=== PATIENT | female | born 1935 | race Caucasian/White ===

== ENCOUNTER 2019-10-15 08:38 | Outpatient (CLI) | payer MEDICARE, OTHER, SELFPAY ==
[2019-10-15 09:40] LABS: Blood Urea Nitrogen 23 mg/dL (7-17); Calcium 9.3 mg/dL (8.4-10.2); Carbon Dioxide 26 mmol/L (22-30); Chloride 103 mmol/L (98-107); Estimated Glomerular Filt Rate 39; Glucose 95 mg/dL (65-105); Potassium 4.3 mmol/L (3.4-5.0); Sodium 142 mmol/L (137-145)
== END 2019-10-15 08:39 | disposition home or self-care (01) ==
PROVIDERS: PCP Family Medicine; Visit Provider Physician Assistant Medical
DX: N18.3 Chronic kidney disease, stage 3 (moderate) (principal)
CPT/HCPCS: 36415; 80048

== ENCOUNTER 2020-06-09 11:33 | Outpatient (CLI) | payer MEDICARE, SELFPAY ==
--- NOTE | ~2020-06-09 | XR_ITS ---
EXAMINATION: XR lumbar spine min 4V DATE: 06/09/2020 12:13 INDICATION: Spinal stenosis TECHNIQUE: Anteroposterior, lateral, and bilateral oblique views of the lumbar spine, and cone-down l ateral view of the lumbosacral junction were obtained. COMPARISON: 01/17/2017 FINDINGS: Lumbar levoscoliosis is unchanged. There are 3 mm of stable anterolisthesis of L3 on L4. Th ere is chronic severe loss of intervertebral disc space height at L3-4. Moderate loss of intervertebr al disc space height at L1-2 and L2-3 is unchanged. The vertebral body heights are maintained. There is no fracture. There is severe facet osteoarthritis throughout the lumbar spine without significant change. Calcified atherosclerosis is noted. IMPRESSION: 1. Severe lumbar spondylosis without acute findings or significant interval change. Reviewed, dictated and finalized at location A. IMPRESSION: 1. Severe lumbar spondylosis without acute findings or significant interval mima nge.
--- NOTE | ~2020-06-09 | XR_ITS ---
EXAMINATION: XR sacrum coccyx min 2V DATE: 06/09/2020 12:13 INDICATION: Lumbar spinal stenosis with neurogenic claudication TECHNIQUE: Frontal, angled frontal and lateral views of the sacrum and coccyx were obtained. COMPARISON: None. FINDINGS: Mild lumbar levocurvature. Alignment is otherwise normal. No fracture. Mild bilateral sacroiliac oste oarthritis. Severe lumbar spondylosis. Postoperative changes with surgical clips projecting over the right innominate bone and with additional large metallic clips project over the lower abdomen. IMPRESSION: 1. Mild bilateral sacroiliac osteoarthritis. Sacrum and coccyx are otherwise unremarkable. 2. Mild lumbar levocurvature with severe spondylosis. Reviewed, dictated and finalized at location B. IMPRESSION: 1. Mild bilateral sacroiliac osteoarthritis. Sacrum and coccyx are otherwise un remarkable. 2. Mild lumbar levocurvature with severe spondylosis.
== END 2020-06-09 11:34 | disposition home or self-care (01) ==
PROVIDERS: PCP Family Medicine; Visit Provider Family Medicine
DX: M48.062 Spinal stenosis, lumbar region with neurogenic claudication (principal); M46.1 Sacroiliitis, not elsewhere classified; M47.816 Spondylosis without myelopathy or radiculopathy, lumbar region
CPT/HCPCS: 72110; 72220

== ENCOUNTER 2020-08-30 19:06 | Inpatient (IN) | payer MEDICARE, OTHER, SELFPAY ==
--- NOTE | ~2020-08-30 | XR_ITS ---
EXAMINATION: XR chest 1V portable INDICATION: Cough TECHNIQUE: Portable AP chest at 1539 hours COMPARISON: 08/30/2020 FINDINGS: The lungs are free of acute opacities. There is no pleural effusion or pneumothorax. The ca rdiomediastinal silhouette is normal. S-shaped curvature of the spine is again noted. A suture anchor is present in the right humeral head. IMPRESSION: 1. No acute cardiopulmonary abnormality. Reviewed, dictated and finalized at location A. EON/PRESIDENT
--- NOTE | ~2020-08-30 | XR_ITS ---
EXAMINATION: XR hip RT min 3V w AP pelvis DATE: 08/30/2020 21:45 INDICATION: Right hip pain post fall TECHNIQUE: Anteroposterior view of the pelvis and anteroposterior, frog leg and cross-table lateral v iews of the right hip were obtained. COMPARISON: 06/09/2020 FINDINGS: Alignment is normal. No fracture. Minimal bilateral hip and sacroiliac osteoarthritis. Moderate lower lumbar spondylosis. Couple surgical clips project cephalad to the right acetabulum. Additional clips project over the lower abdomen. IMPRESSION: 1. No acute osseous abnormality. Reviewed, dictated and finalized at location A. APEUTIC PROGRAM WORKER
--- NOTE | ~2020-08-30 | CT_ITS ---
EXAMINATION: CT cervical spine wo con DATE: 08/30/2020 20:02 INDICATION: Head injury TECHNIQUE: Computed tomography (CT) of the cervical spine was performed without intravenous contrast. The dose-length product (DLP) was 296.74 mGy-cm. Automated exposure control and iterative reconstruc tion technique were employed. COMPARISON: 10/23/2018 FINDINGS: There is no fracture. Severe chronic loss of intervertebral disc space height at C5-6 is un changed. There is moderate to severe facet osteoarthritis in the mid cervical spine on the left. Ana re bilateral uncovertebral joint osteoarthritis is present at C5-6. The odontoid is intact. There is fibrous union of the posterior C1 ring. IMPRESSION: 1. Severe cervical spondylosis without acute findings or significant interval change. Reviewed, dictated and finalized at location A. SKILLS INSTRUCTOR IMPRESSION: 1. Severe cervical spondylosis without acute findings or significant interval zenaida holguin
--- NOTE | ~2020-08-30 | CT_ITS ---
EXAMINATION: CT brain wo con INDICATION: Head injury COMPARISON: 10/23/2018 TECHNIQUE: Standard unenhanced head CT. The dose-length product (DLP) was 605.33 mGy-cm. The mA was a djusted according to patient size. Iterative reconstruction technique was employed. FINDINGS: There is left periorbital soft tissue swelling and a small laceration. There is no acute in traparenchymal hemorrhage. No evidence of mass lesion. No evidence of acute infarction. There is mild periventricular and subcortical hypodensity probably related to small vessel ischemic disease. There is mild prominence of the sulci and ventricles related to cerebral atrophy. Intracranial calcified c erebral atherosclerosis is noted. There are no extra-axial collections. There is no mass effect or mi dline shift. Changes in the globes are likely from ocular lens surgery. The visualized sinuses and m astoid air cells are well aerated. IMPRESSION: 1. No acute intracranial abnormality. 2. Age related findings. Reviewed, dictated and finalized at location A. MINER BLASTING
--- NOTE | ~2020-08-30 | XR_ITS ---
EXAMINATION: XR chest 1V INDICATION: Transient alteration of awareness, history of COPD TECHNIQUE: AP view of the chest is obtained. COMPARISON: 10/23/2018 FINDINGS: The lungs are free of acute opacities. There is no pleural effusion or pneumothorax. The ca rdiomediastinal silhouette is normal. A suture anchor is noted in the right humeral head. There is S- shaped curvature of the spine. Surgical clips in the right upper quadrant are likely from prior tahir cystectomy. There also appear to be changes of mesh ventral hernia repair in the upper abdomen. IMPRESSION: 1. No acute cardiopulmonary abnormality. Reviewed, dictated and finalized at location A. PROFIT JOB TITLES
[2020-08-30 19:06] VITALS: BP 147/75; PULSE 89; RESP 15; TEMP 36.7; O2SAT 95
--- NOTE | 2020-08-30 19:26 | ECG_ITS ---
Measurements Intervals [place] Rate: 82 P: 38 NH: 138 QRS: 61 QRSD: 134 T: 39 QT: 396 QTc: 464 Interpretive Statements SINUS RHYTHM WITH MARKED SINUS ARRHYTHMIA RIGHT BUNDLE BRANCH BLOCK ABNORMAL ECG Electronically Signed On 08-31-2020 7:58:52 LOG YARD DERRICK OPERATOR by Sb Atkinson D.O.
--- NOTE | 2020-08-30 19:35 | PC.NURSE ---
pt. to xray
[2020-08-30] MEDS: TETANUS,DIPHTHERIA,AC PERTUSSIS ADULT (0.5 ML) BOOSTRIX IM (20:18)
[2020-08-30] MEDS: SODIUM CHLORIDE 0.9% IV 1,000 ML 999 ML IV CONT (20:18)
[2020-08-30 20:34] LABS: Glucose Point of Care 321 (65-105)
[2020-08-30 20:39] LABS: Basophils Percent Auto 0.3 % (0.2-1.2); Eosinophils Percent Auto 0.4 % (0-4.4); Hemoglobin 10.7 g/dL (12.0-15.0); Immature Granulocyte Absolute 0.05 K/mm3 (0.00-0.031); Immature Granulocyte Percent A 0.5 % (0-0.5); Lymphocytes Absolute Auto 2.25 K/mm3 (0.9-3.2); Lymphocytes Percent Auto 22.5 % (18.3-44.2); Mean Corpuscular HGB Conc 31.5 g/dl (32-36); Mean Corpuscular Hemoglobin 30.7 pg (26-34); Mean Corpuscular Volume 97.7 fl (80-100); Mean Platelet Volume 10.5 fl (7.4-10.4); Monocytes Absolute Auto 1.1 K/mm3 (0.1-0.6); Monocytes Percent Auto 10.9 % (2.6-8.5); Neutrophils Absolute Auto 6.5 K/mm3 (1.3-6.7); Neutrophils Percent Auto 65.4 % (45.5-73.1); Platelet Count Result 203 k/mm3 (150-375); Red Blood Count 3.48 M/mm3 (4.2-5.4); Red Cell Distribution Width 13.2 % (11.5-14.5)
[2020-08-30 20:44] LABS: Add Urine Microscopic? YES; Appearance Urine Cloudy (Clear); Bacteria Urine 1+ /hpf; Bilirubin Urine Negative (Negative); Blood Urine Negative (Negative); Color Urine Yellow (Yellow); Glucose Urine UA 3+ mg/dL (Negative); Ketones Urine Negative (Negative); Leukocyte Esterase Ur 3+ LEU/UL (Negative); Mucus Urine Rare /lpf; Nitrate Urine Negative (Negative); Protein Urine Negative (Negative); Specific Grav Ur 1.013 (1.001-1.035); Squamous Epithelial Cell Urine Rare /hpf (Few); Urobilinogen Urine Negative mg/dL (<2.0); WBC Urine >75 /hpf
[2020-08-30 21:02] LABS: Troponin I 0.016 ng/mL (0.000-0.034)
--- NOTE | 2020-08-30 21:22 | ED.GENADULT ---
HPI - General Adult General Chief complaint: Fall Stated complaint: fall, loc Time Seen by Provider: 08/30/20 19:30 History of Present Illness HPI narrative: Patient is a 84-year-old female who presents the emergency department with chief complaint of fall. Patient states that she was in her apartment at [facility] and the next thing she knows she is on the ground. Patient reports that she is unsure whether she passed out. The family reports that she has been more confused lately and today after she arrived in the emergency department was talking to herself. Patient denies nausea vomiting denies neck pain reports she is unsure of her last tetanus shot. She reports there is a laceration to her left eyebrow Related Data Home Medications Medication Instructions Recorded Confirmed docusate sodium 100 mg tablet 100 mg PO DAILY 07/24/19 06/09/20 lifitegrast 5 % eye drops in a 1 drop EACH EYE BID 07/25/19 06/09/20 dropperette acetaminophen 325 mg tablet 325 mg PO QID PRN tablet 08/10/19 06/09/20 furosemide 20 mg tablet 10 mg PO QAM tablet 12/17/19 06/09/20 duloxetine 60 mg capsule,delayed 60 mg PO DAILY 08/11/20 release Allergies Allergy/AdvReac Type Severity Reaction Status Date / Time No Known Allergies Allergy Verified 08/11/20 08:02 Review of Systems Review of Systems: Narrative: A 10 system review of systems was completed on the patient and is negative except for what is stated in the HPI. Nursing and ancillary documentation was reviewed. [facility]LY [facility] Past Medical History Medical History BMI 31.0-31.9,adult BMI 32.0-32.9,adult CKD (chronic kidney disease) stage 3, GFR 30-59 ml/min COPD (chronic obstructive pulmonary disease) Depression Dyslipidemia Iron deficiency anemia secondary to blood loss (chronic) Loss of balance Mixed hyperlipidemia CLAIR (obstructive sleep apnea) CLAIR (obstructive sleep apnea) Primary insomnia Psychosis Recurrent urinary tract infection Spinal stenosis of lumbar region with neurogenic claudication Type 2 diabetes mellitus without complications Vitamin D deficiency, unspecified Family History Family History Father Family history of coronary artery disease Cerebrovascular accident Family history of congestive heart failure Social History Social History Smoking status: Never smoker Alcohol intake: never Exam Narrative: Exam Narrative: GENERAL: Well-appearing, well-nourished, and in no acute distress. HEAD: Normocephalic, there is a 3 cm laceration of the left eyebrow there is a contusion to the chin. EYES: PERRLA and EOMI. ENT: Nares clear, no rhinorrhea or epistaxis. Mucous membranes moist. NECK: Supple. CHEST: Clear to auscultation. No respiratory distress. HEART: Regular rate and rhythm. No murmur heard. Normal peripheral pulses. ABDOMEN: Soft, nontender, nondistended, normal active bowel sounds. EXTREMITIES: Normal range of motion. No edema. SKIN: Warm, dry, no rash. NEURO: No focal deficits. Alert and oriented x3. PSYCH: Normal mood and affect. Course Vital Signs Vital signs: Vital Signs Temperature 36.7 C 08/30/20 19:06 Pulse Rate 89 08/30/20 19:06 Respiratory Rate 15 08/30/20 19:06 Blood Pressure 147/75 H 08/30/20 19:06 Pulse Oximetry 95 08/30/20 19:06 Temperature 36.7 C 08/30/20 19:06 Pulse Rate 89 08/30/20 19:06 Respiratory Rate 15 08/30/20 19:06 Blood Pressure 147/75 H 08/30/20 19:06 Pulse Oximetry 95 08/30/20 19:06 Procedures Laceration Laceration 1: Date: 08/30/20 Time: 21:22 Site: face Size (cm): 3 Description: linear Depth: simple, single layer Local Anesthetic: lidocaine 1% Amount of anesthesia used (mL): 3 Pre-repair: wound explored ====== Skin Level ==
[2020-08-30 22:18] VITALS: BP 151/60; PULSE 86; RESP 15; O2SAT 96
[2020-08-30 22:44] VITALS: BP 130/88; PULSE 86; RESP 17; O2SAT 95
--- NOTE | 2020-08-30 23:01 | ADMGEN ---
This patient, Kath Hernandez, was admitted to Medical Room 346-01. Patient/family oriented to hospital policies and general routines including ID bracelet, bed and alarms, visiting hours, pain management, procedures, bathroom and other care routines, personal items, smoking policy, room service/diet, and visiting hours. Information on how to activate the Rapid Response Team has been discussed. Patient/Family are encouraged to report perceived risks to care and to ask questions if they do not understand what they are told or what they should do.
[2020-08-30 23:06] VITALS: BP 122/87; PULSE 84; RESP 18; TEMP 36.4; O2SAT 98
[2020-08-30 23:08] VITALS: BMI 29.5
[2020-08-30] MEDS: SODIUM CHLORIDE 0.9% IV 1,000 ML 125 ML IV CONT (23:11)
[2020-08-30 23:15] LABS: Glucose Point of Care 265 (65-105)
[2020-08-31] VITALS (9 sets, daily range): BP systolic 121–136; BP diastolic 48–88; PULSE 75–112; RESP 17–18; TEMP 36.3–36.8; O2SAT 94–97
--- NOTE | 2020-08-31 01:03 | PM.IMHP ---
H&P: HPI History of Present Illness Date/Time: 08/31/20 01:03 Chief Complaint: Fall at home and weakness++ Narrative: This is a pleasantly demented 84 year old Diabetic female who is known to have COPD, CKD stage III, and recurent UTIs who presented to the hospital today from assisted living secondary to suffering a fall. The patient is severely demented and cannot recall even her own age, where she lives, and is not able to tell me any details of anything that happened to her today. She seems to only be oriented to herself. She has no insight into her own chronic medical illnesses. Currently she is only complaining of left eye discomfort. She suffered a left frontal laceration which was sutured in the ER. Routine labs demonstrated a grossly abnormal urinalysis. CT brain was unremarkable for any acute intracranial pathology today. She was treated with IV fluids, IV antibiotics and we were asked to admit her to the hospital for further care. She has no other complaints. Her daughter has already been making plans to place the patient in SNF. Review of Systems Review of Systems: All systems reviewed & are unremarkable except as noted in HPI and below PMFSH Past Medical History Medical History BMI 31.0-31.9,adult BMI 32.0-32.9,adult CKD (chronic kidney disease) stage 3, GFR 30-59 ml/min COPD (chronic obstructive pulmonary disease) Depression Dyslipidemia Iron deficiency anemia secondary to blood loss (chronic) Loss of balance Mixed hyperlipidemia CLAIR (obstructive sleep apnea) CLAIR (obstructive sleep apnea) Primary insomnia Psychosis Recurrent urinary tract infection Spinal stenosis of lumbar region with neurogenic claudication Type 2 diabetes mellitus without complications Vitamin D deficiency, unspecified Family History Family History Father Family history of coronary artery disease Cerebrovascular accident Family history of congestive heart failure Social History Social History Smoking status: Never smoker Alcohol intake: never Substance use: never Gender identity (if verbalized by the patient): Female Sexual Orientation (if Verbalized by the Patient): Straight or Heterosexual Spiritual care concerns: No Meds Home Medications and Allergies Home Medications Medication Instructions Recorded Confirmed Type docusate sodium 100 mg tablet 100 mg PO DAILY 07/24/19 08/31/20 History lifitegrast 5 % eye drops in a 1 drop EACH EYE BID 07/25/19 08/31/20 History dropperette acetaminophen 325 mg tablet 650 mg PO QAM AND QPM tablet 08/10/19 08/31/20 History simvastatin 20 mg tablet 20 mg PO DAILY #90 tablet 10/31/19 08/31/20 Rx raloxifene 60 mg tablet 60 mg PO DAILY #90 tablet 11/01/19 08/31/20 Rx furosemide 20 mg tablet 20 mg PO QAM tablet 12/17/19 08/31/20 History duloxetine 60 mg capsule,delayed 30 mg PO DAILY 08/11/20 08/31/20 History release acetaminophen 325 mg PO QNOON 08/31/20 08/31/20 History donepezil 10 mg PO HS 08/31/20 08/31/20 History glimepiride 1 mg PO DAILY 08/31/20 08/31/20 History meclizine 25 mg PO BID 08/31/20 08/31/20 History memantine 10 mg PO BID 08/31/20 08/31/20 History sertraline 100 mg PO DAILY 08/31/20 08/31/20 History tramadol 50 mg PER PKG DIR PRN 08/31/20 08/31/20 History Allergies Allergy/AdvReac Type Severity Reaction Status Date / Time No Known Allergies Allergy Verified 08/31/20 00:05 Vital Signs Vital Signs - 24 hr 08/30/20 19:06 08/30/20 22:18 08/30/20 22:44 Temperature 36.7 C Pulse Rate 89 86 86 Respiratory Rate 15 15 17 Blood Pressure 147/75 H 151/60 H 130/88 Pulse Oximetry 95 96 95 08/30/20 23:06 Temperature 36.4 C Pulse Rate 84 Respiratory Rate 18 Blood Pressure 122/87 Pulse Oximetry 98 Exam Const: General: cooperative, healthy appearing, no acute distress, alert
[2020-08-31 01:16] LABS: Troponin I 0.022 ng/mL (0.000-0.034)
[2020-08-31 04:04] LABS: Basophils Percent Auto 0.2 % (0.2-1.2); Eosinophils Absolute Auto 0.1 K/mm3 (0-0.3); Eosinophils Percent Auto 0.8 % (0-4.4); Hematocrit 27.5 % (37.0-47.0); Hemoglobin 8.6 g/dL (12.0-15.0); Immature Granulocyte Absolute 0.04 K/mm3 (0.00-0.031); Immature Granulocyte Percent A 0.4 % (0-0.5); Lymphocytes Absolute Auto 3.11 K/mm3 (0.9-3.2); Lymphocytes Percent Auto 30.6 % (18.3-44.2); Mean Corpuscular HGB Conc 31.3 g/dl (32-36); Mean Corpuscular Hemoglobin 31.5 pg (26-34); Mean Corpuscular Volume 100.7 fl (80-100); Mean Platelet Volume 10.5 fl (7.4-10.4); Monocytes Percent Auto 10.2 % (2.6-8.5); Neutrophils Absolute Auto 5.9 K/mm3 (1.3-6.7); Neutrophils Percent Auto 57.8 % (45.5-73.1); Platelet Count Result 167 k/mm3 (150-375); Red Blood Count 2.73 M/mm3 (4.2-5.4); Red Cell Distribution Width 13.5 % (11.5-14.5); White Blood Count 10.2 K/mm3 (4.5-10.0)
[2020-08-31 04:23] LABS: Anion Gap 6 mmol/L (8-16); Blood Urea Nitrogen 26 mg/dL (7-17); Calcium 8.3 mg/dL (8.4-10.2); Carbon Dioxide 33 mmol/L (22-30); Chloride 103 mmol/L (98-107); Estimated CRCL calculation 33 ml/min; Estimated Glomerular Filt Rate 53; Glucose 193 mg/dL (65-105); Magnesium 1.7 mg/dL (1.6-2.3); Potassium 3.9 mmol/L (3.4-5.0); Sodium 142 mmol/L (137-145)
[2020-08-31 04:34] LABS: Troponin I 0.024 ng/mL (0.000-0.034)
[2020-08-31 08:12] LABS: Glucose Point of Care 142 (65-105)
[2020-08-31] MEDS: SODIUM CHLORIDE 0.9% IV 1,000 ML 125 ML IV CONT (08:35)
[2020-08-31] MEDS: buPROPion HCL XL (24 HR) 150 MG TABCR 300 MG PO (08:41)
[2020-08-31] MEDS: MEMANTINE 10 MG TABLET PO ×2 (08:41→17:08)
[2020-08-31] MEDS: SIMVASTATIN 20 MG TABLET PO (08:41)
[2020-08-31] MEDS: DONEPEZIL HCL 10 MG TABLET PO (08:41)
[2020-08-31] MEDS: GLIMEPIRIDE 1 MG TABLET PO (08:41)
[2020-08-31] MEDS: DULoxetine HCL 60 MG CAPSULE.DR PO (08:42)
[2020-08-31] MEDS: SERTRALINE HCL 50 MG TABLET 200 MG PO (08:42)
[2020-08-31] MEDS: FUROSEMIDE 20 MG TABLET PO (08:42)
[2020-08-31] MEDS: RALOXIFENE HCL (*CHEMO) 60 MG TABLET PO (08:44)
[2020-08-31] MEDS: DOCUSATE SODIUM 100 MG CAPSULE PO (11:43)
[2020-08-31 12:08] LABS: Glucose Point of Care 150 (65-105)
--- NOTE | 2020-08-31 12:38 | PM.IMPN ---
Progress Note: A&P Assessment and Plan (1) UTI (urinary tract infection): Qualifiers: Hematuria presence: without hematuria Urinary tract infection type: site unspecified Qualified Code(s): N39.0 - Urinary tract infection, site not specified Code(s): N39.0 - Urinary tract infection, site not specified Status: Acute Assessment and Plan: Urinalysis is grossly abnormal for urinary tract infection. She has a hx of frequent UTIs. Urine cultures are pending. Continue empiric ceftriaxone Await urine cultures and adjust antibiotics accordingly (2) Falls: Qualifiers: Encounter type: initial encounter Qualified Code(s): W19.XXXA - Unspecified fall, initial encounter Code(s): W19.XXXA - Unspecified fall, initial encounter Status: Acute Assessment and Plan: Appears to be secondary to her acute urinary tract infection and severe dementia. Continue fall precautions PT/OT have been consulted Care coordination is following for SNF placement (3) Dementia: Qualifiers: Dementia behavioral disturbance: without behavioral disturbance Dementia type: unspecified type Qualified Code(s): F03.90 - Unspecified dementia without behavioral disturbance Code(s): F03.90 - Unspecified dementia without behavioral disturbance Status: Chronic Assessment and Plan: Chronic and progressively worsening over the past 6 months per the patient's daughter. She is alert and oriented to self, place, month, states 2019 for year. Will check vitamin B12 and folate levels. Continue home memantine and donepezil. Continue to monitor Care coordination is following for rehab placement Will ask WHEEL BUFFER to evaluate for witnessed cough after clear liquids (4) Chronic anemia: Code(s): D64.9 - Anemia, unspecified Status: Chronic Assessment and Plan: Likely anemia of chronic disease. Will check vitamin B12, folate, iron levels. MCV slightly elevated. She has no signs of acute blood loss at this time. Check iron, vitamin B12, folate Monitor H&H with CBC daily Transfuse as needed to maintain Hb >7 (5) Depression: Qualifiers: Active/Remission status: currently active Depression Type: major depressive disorder Major depression episode severity: moderate Major depression recurrence: single episode Qualified Code(s): F32.1 - Major depressive disorder, single episode, moderate Code(s): F32.9 - Major depressive disorder, single episode, unspecified Status: Chronic Assessment and Plan: Chronic. Mood is stable and she is very pleasant. Continue prior to admission regimen of bupropion, duloxetine, and sertraline (6) COPD (chronic obstructive pulmonary disease): Qualifiers: COPD type: unspecified COPD Qualified Code(s): J44.9 - Chronic obstructive pulmonary disease, unspecified Code(s): J44.9 - Chronic obstructive pulmonary disease, unspecified Status: Chronic Assessment and Plan: Chronic and not in acute exacerbation. Continue albuterol as needed. (7) Dyslipidemia: Code(s): E78.5 - Hyperlipidemia, unspecified Status: Chronic Assessment and Plan: LFTs normal 11/16/18. Order CMP for tomorrow to check liver function Continue simvastatin (8) Dysphagia: Code(s): R13.10 - Dysphagia, unspecified Status: Acute Assessment and Plan: The RN noted that the patient coughed after thin liquids. WHEEL BUFFER will evaluate tomorrow. In the meantime, I changed diet to mildly thick liquids and minced and moist for today until further recommendations from WHEEL BUFFER are available Subjective Date/time seen: 08/31/20 12:38 Mrs. Hernandez is an 84 y.o. female with PMH significant for dementia, CKD stage III, COPD, depression, hyperlipidemia, and recurrent urinary tract infections who is seen in follow-up for urinary tract infectio
[2020-08-31] MEDS: ACETAMINOPHEN 325 MG TABLET PO (12:44)
--- NOTE | 2020-08-31 16:20 | PC.NURSE ---
Spoke with patient's daughter Mini Mena earlier today to confirm home medications. [id number] the director of patient care handed me a medication list for this patient.. She voiced that the patients daughter brought in this home medications list. Upon looking at the list I saw it had medications on it that the patients daughter voiced that she no longer takes and additional medications that we has not discussed. She voiced there is more and she apoligized and said she had a long morning.
[2020-08-31 16:38] LABS: Glucose Point of Care 202 (65-105)
[2020-08-31] MEDS: INSULIN ASPART (*BKC) 100 UNITS/ML SUB-Q (17:03)
[2020-08-31] MEDS: OLANZapine 10 MG INJ VIAL 5 MG IM (19:51)
[2020-08-31 20:47] LABS: SARS-CoV-2 RNA PCR Negative
[2020-08-31 21:49] LABS: Glucose Point of Care 200 (65-105)
[2020-09-01 04:40] VITALS: BP 142/67; PULSE 104; RESP 18; TEMP 36.5; O2SAT 96
[2020-09-01 06:22] LABS: Basophils Percent Auto 0.1 % (0.2-1.2); Eosinophils Absolute Auto 0.1 K/mm3 (0-0.3); Eosinophils Percent Auto 1.2 % (0-4.4); Hematocrit 29.8 % (37.0-47.0); Hemoglobin 9.5 g/dL (12.0-15.0); Immature Granulocyte Absolute 0.03 K/mm3 (0.00-0.031); Immature Granulocyte Percent A 0.4 % (0-0.5); Lymphocytes Absolute Auto 2.51 K/mm3 (0.9-3.2); Lymphocytes Percent Auto 33.5 % (18.3-44.2); Mean Corpuscular HGB Conc 31.9 g/dl (32-36); Mean Corpuscular Hemoglobin 30.8 pg (26-34); Mean Corpuscular Volume 96.8 fl (80-100); Mean Platelet Volume 10.5 fl (7.4-10.4); Monocytes Absolute Auto 0.8 K/mm3 (0.1-0.6); Monocytes Percent Auto 10.7 % (2.6-8.5); Neutrophils Absolute Auto 4.1 K/mm3 (1.3-6.7); Neutrophils Percent Auto 54.1 % (45.5-73.1); Platelet Count Result 182 k/mm3 (150-375); Red Blood Count 3.08 M/mm3 (4.2-5.4); Red Cell Distribution Width 13.5 % (11.5-14.5); White Blood Count 7.5 K/mm3 (4.5-10.0)
[2020-09-01 06:35] LABS: Alanine Aminotransferase 20 U/L (4-35); Albumin Level 2.9 g/dL (3.5-5.1); Alkaline Phosphatase 75 U/L (38-126); Anion Gap 3 mmol/L (8-16); Aspartate Amino Transferase 31 U/L (14-36); Bilirubin,Total 0.4 mg/dL (0.2-1.3); Blood Urea Nitrogen 21 mg/dL (7-17); Calcium 8.5 mg/dL (8.4-10.2); Carbon Dioxide 34 mmol/L (22-30); Chloride 103 mmol/L (98-107); Estimated CRCL calculation 33 ml/min; Estimated Glomerular Filt Rate 53; Glucose 112 mg/dL (65-105); Magnesium 1.5 mg/dL (1.6-2.3); Potassium 3.4 mmol/L (3.4-5.0); Sodium 140 mmol/L (137-145)
[2020-09-01 07:32] LABS: Glucose Point of Care 120 (65-105)
[2020-09-01] MEDS: SIMVASTATIN 20 MG TABLET PO (08:35)
[2020-09-01] MEDS: ACETAMINOPHEN 325 MG TABLET 650 MG PO ×2 (08:35→21:17)
[2020-09-01] MEDS: buPROPion HCL XL (24 HR) 150 MG TABCR 300 MG PO (08:35)
[2020-09-01] MEDS: RALOXIFENE HCL (*CHEMO) 60 MG TABLET PO (08:35)
[2020-09-01] MEDS: MECLIZINE HCL 25 MG TABLET PO (08:35)
[2020-09-01] MEDS: SERTRALINE HCL 50 MG TABLET 100 MG PO (08:35)
[2020-09-01] MEDS: MEMANTINE 10 MG TABLET PO ×2 (08:35→16:51)
[2020-09-01] MEDS: DOCUSATE SODIUM 100 MG CAPSULE PO (08:35)
[2020-09-01] MEDS: DONEPEZIL HCL 10 MG TABLET PO (08:35)
[2020-09-01] MEDS: DULoxetine HCL 30 MG CAPSULE.DR PO (08:36)
[2020-09-01] MEDS: MAGNESIUM SULF 2 GM/WATER 50ML 2 GM/50 ML BAG IVPB (08:37)
--- NOTE | 2020-09-01 10:36 | ECG_ITS ---
Measurements Intervals [place] Rate: 115 P: 5 NE: 149 QRS: 53 QRSD: 130 T: 25 QT: 362 QTc: 501 Interpretive Statements SINUS TACHYCARDIA RIGHT BUNDLE BRANCH BLOCK ABNORMAL ECG Electronically Signed On 09-01-2020 11:59:47 TAX ASSESSOR by Sb Atkinson D.O.
--- NOTE | 2020-09-01 10:37 | PM.IMPN ---
Progress Note: A&P Assessment and Plan (1) UTI (urinary tract infection): Qualifiers: Hematuria presence: without hematuria Urinary tract infection type: site unspecified Qualified Code(s): N39.0 - Urinary tract infection, site not specified Code(s): N39.0 - Urinary tract infection, site not specified Status: Acute Assessment and Plan: Urinalysis is grossly abnormal for urinary tract infection. She has a hx of frequent UTIs. Preliminary urine culture shows proteus mirabilis. Continue empiric ceftriaxone Await urine cultures and adjust antibiotics accordingly (2) Falls: Qualifiers: Encounter type: initial encounter Qualified Code(s): W19.XXXA - Unspecified fall, initial encounter Code(s): W19.XXXA - Unspecified fall, initial encounter Status: Acute Assessment and Plan: Appears to be secondary to her acute urinary tract infection and severe dementia. Continue fall precautions PT/OT have been consulted Care coordination is following for SNF placement (3) Dementia: Qualifiers: Dementia behavioral disturbance: without behavioral disturbance Dementia type: unspecified type Qualified Code(s): F03.90 - Unspecified dementia without behavioral disturbance Code(s): F03.90 - Unspecified dementia without behavioral disturbance Status: Chronic Assessment and Plan: Chronic and progressively worsening over the past 6 months per the patient's daughter. She is alert and oriented to self, place, month, states 2019 for year. Will check vitamin B12 and folate levels. Continue home memantine and donepezil. Continue to monitor Care coordination is following for rehab placement SENIOR BUSINESS CONSULTANT recommends mildly thick liquids (4) Chronic anemia: Code(s): D64.9 - Anemia, unspecified Status: Chronic Assessment and Plan: Likely anemia of chronic disease. Will check vitamin B12, folate, iron levels. MCV normal today. She has no signs of acute blood loss. Check iron, vitamin B12, folate Monitor H&H with CBC daily Transfuse as needed to maintain Hb >7 (5) Depression: Qualifiers: Active/Remission status: currently active Depression Type: major depressive disorder Major depression episode severity: moderate Major depression recurrence: single episode Qualified Code(s): F32.1 - Major depressive disorder, single episode, moderate Code(s): F32.9 - Major depressive disorder, single episode, unspecified Status: Chronic Assessment and Plan: Chronic. Mood is stable and she is very pleasant. Continue prior to admission regimen of bupropion, duloxetine, and sertraline (6) COPD (chronic obstructive pulmonary disease): Qualifiers: COPD type: unspecified COPD Qualified Code(s): J44.9 - Chronic obstructive pulmonary disease, unspecified Code(s): J44.9 - Chronic obstructive pulmonary disease, unspecified Status: Chronic Assessment and Plan: Chronic and not in acute exacerbation. Continue albuterol as needed. (7) Dyslipidemia: Code(s): E78.5 - Hyperlipidemia, unspecified Status: Chronic Assessment and Plan: LFTs normal on review of labs. Continue simvastatin (8) Dysphagia: Code(s): R13.10 - Dysphagia, unspecified Status: Acute Assessment and Plan: The RN noted that the patient coughed after thin liquids. I changed her diet to mildly thick liquids and minced and moiced which she is doing well on. She has underlying dementia which is likely contributing. SENIOR BUSINESS CONSULTANT evaluated and recommends level 2 fluids and speech therapy 3x per week for 2 weeks (9) Chest pain: Code(s): R07.9 - Chest pain, unspecified Status: Acute Assessment and Plan: The patient reports aching discomfort in the mid chest with pulling herself up in the bed. Pain is only present with movement and
[2020-09-01 11:15] LABS: Glucose Point of Care 356 (65-105)
[2020-09-01 11:17] LABS: Glucose Point of Care 366 (65-105)
[2020-09-01] MEDS: INSULIN ASPART (*BKC) 100 UNITS/ML SUB-Q ×3 (11:18→22:45)
[2020-09-01] MEDS: ACETAMINOPHEN 325 MG TABLET PO (11:18)
[2020-09-01 11:20] LABS: Troponin I 0.015 ng/mL (0.000-0.034)
[2020-09-01 14:00] VITALS: BP 121/54; PULSE 98; RESP 16; TEMP 35.7; O2SAT 95
[2020-09-01 17:06] LABS: Glucose Point of Care 294 (65-105)
[2020-09-01 17:22] LABS: Troponin I 0.018 ng/mL (0.000-0.034)
[2020-09-01 18:50] LABS: SARS-CoV-2 RNA PCR Negative
[2020-09-01 19:58] VITALS: BP 155/65; PULSE 95; RESP 16; TEMP 36.6; O2SAT 98
[2020-09-01] MEDS: ENOXAPARIN 40 MG/0.4 ML SYRINGE SUB-Q (21:17)
[2020-09-01] MEDS: INSULIN GLARGINE (*BKC) 100 UNITS/ML 10 UNITS SUB-Q (21:17)
[2020-09-01 21:28] LABS: Glucose Point of Care 345 (65-105)
[2020-09-01 23:12] LABS: Magnesium 1.6 mg/dL (1.6-2.3)
[2020-09-02 03:12] LABS: Glucose Point of Care 95 (65-105)
[2020-09-02 04:19] VITALS: BP 150/54; PULSE 99; RESP 18; TEMP 36.9; O2SAT 99
[2020-09-02 05:57] LABS: Basophils Percent Auto 0.2 % (0.2-1.2); Eosinophils Absolute Auto 0.1 K/mm3 (0-0.3); Eosinophils Percent Auto 1.1 % (0-4.4); Hematocrit 31.3 % (37.0-47.0); Immature Granulocyte Absolute 0.02 K/mm3 (0.00-0.031); Immature Granulocyte Percent A 0.2 % (0-0.5); Lymphocytes Absolute Auto 2.41 K/mm3 (0.9-3.2); Lymphocytes Percent Auto 26.4 % (18.3-44.2); Mean Corpuscular HGB Conc 31.9 g/dl (32-36); Mean Corpuscular Hemoglobin 31.6 pg (26-34); Mean Corpuscular Volume 99.1 fl (80-100); Mean Platelet Volume 10.6 fl (7.4-10.4); Monocytes Percent Auto 10.7 % (2.6-8.5); Neutrophils Absolute Auto 5.6 K/mm3 (1.3-6.7); Neutrophils Percent Auto 61.4 % (45.5-73.1); Platelet Count Result 177 k/mm3 (150-375); Red Blood Count 3.16 M/mm3 (4.2-5.4); Red Cell Distribution Width 13.7 % (11.5-14.5); White Blood Count 9.1 K/mm3 (4.5-10.0)
[2020-09-02 06:19] LABS: Anion Gap 6 mmol/L (8-16); Blood Urea Nitrogen 20 mg/dL (7-17); Calcium 8.9 mg/dL (8.4-10.2); Carbon Dioxide 33 mmol/L (22-30); Chloride 102 mmol/L (98-107); Estimated CRCL calculation 33 ml/min; Estimated Glomerular Filt Rate 53; Glucose 141 mg/dL (65-105); Magnesium 1.6 mg/dL (1.6-2.3); Potassium 3.8 mmol/L (3.4-5.0); Sodium 141 mmol/L (137-145)
[2020-09-02 07:44] LABS: Folic Acid > 20.0 ng/mL (2.76->20)
[2020-09-02 07:52] LABS: Iron 42 ug/dL (37-170)
[2020-09-02 08:03] LABS: Percent Iron Saturation 14 % (20-50)
[2020-09-02] MEDS: buPROPion HCL XL (24 HR) 150 MG TABCR 300 MG PO (08:17)
[2020-09-02] MEDS: MECLIZINE HCL 25 MG TABLET PO (08:17)
[2020-09-02] MEDS: RALOXIFENE HCL (*CHEMO) 60 MG TABLET PO (08:18)
[2020-09-02] MEDS: DOCUSATE SODIUM 100 MG CAPSULE PO (08:18)
[2020-09-02] MEDS: SIMVASTATIN 20 MG TABLET PO (08:18)
[2020-09-02] MEDS: SERTRALINE HCL 50 MG TABLET 100 MG PO (08:18)
[2020-09-02] MEDS: DONEPEZIL HCL 10 MG TABLET PO (08:18)
[2020-09-02] MEDS: DULoxetine HCL 30 MG CAPSULE.DR PO (08:18)
[2020-09-02] MEDS: ACETAMINOPHEN 325 MG TABLET 650 MG PO (08:18)
[2020-09-02] MEDS: MEMANTINE 10 MG TABLET PO ×2 (08:18→17:20)
[2020-09-02 10:02] LABS: Hemoglobin A1C 8.6 % (<5.7)
[2020-09-02] MEDS: INSULIN ASPART (*BKC) 100 UNITS/ML SUB-Q ×2 (11:32→17:18)
[2020-09-02] MEDS: ACETAMINOPHEN 325 MG TABLET PO (11:33)
[2020-09-02 11:40] LABS: Glucose Point of Care 307 (65-105)
[2020-09-02 14:00] VITALS: BP 130/69; PULSE 107; RESP 16; TEMP 36; O2SAT 98
[2020-09-02 14:22] VITALS: O2SAT 95
--- NOTE | 2020-09-02 16:33 | PM.DS ---
DS: Admitting Diagnosis Admitting Diagnosis Admitting Diagnosis: urinary tract infection DS: Discharge Diagnosis Discharge Diagnosis (1) UTI (urinary tract infection): Qualifiers: Urinary tract infection type: site unspecified Hematuria presence: without hematuria Qualified Code(s): N39.0 - Urinary tract infection, site not specified Code(s): N39.0 - Urinary tract infection, site not specified Status: Acute Assessment and Plan: Urinalysis grossly abnormal upon presentation consistent with urinary tract infection. She does have a history of frequent UTIs. Urine culture grew Proteus mirabilis. She was started on IV ceftriaxone and will continue taking p.o. cefdinir to complete a total of 7 days of antibiotic therapy. Mild leukocytosis resolved and she remained afebrile. she did not endorse any urinary symptoms. (2) Falls: Qualifiers: Encounter type: initial encounter Qualified Code(s): W19.XXXA - Unspecified fall, initial encounter Code(s): W19.XXXA - Unspecified fall, initial encounter Status: Acute Assessment and Plan: Probably secondary to physical deconditioning, dementia, and possibly secondary to acute urinary tract infection. she did have some scattered ecchymoses and a small are linear laceration above the left eyebrow. She was evaluated by PT/OT and will continue therapy at SNF. Fall precautions discussed. (3) Dementia: Qualifiers: Dementia type: unspecified type Dementia behavioral disturbance: without behavioral disturbance Qualified Code(s): F03.90 - Unspecified dementia without behavioral disturbance Code(s): F03.90 - Unspecified dementia without behavioral disturbance Status: Chronic Assessment and Plan: She remained pleasantly confused, consistent with her baseline. Family reports progressive worsening over the past 6 months. Alert to self only on my exam. She was evaluated by speech therapy who recommended mildly thick liquids. Continue home memantine and donepezil. (4) Type 2 diabetes mellitus without complications: Qualifiers: Diabetes mellitus manager terminal insulin use: without longterm use Qualified Code(s): E11.9 - Type 2 diabetes mellitus without complications Code(s): E11.9 - Type 2 diabetes mellitus without complications Status: Acute Assessment and Plan: Blood sugars were elevated above target. She was started on Lantus during her stay and glimepiride was held. A1c was 8.6. Insulin was not continued upon discharge given her advanced age in dementia. glimepiride was increased from 1 mg to 2mg. she will need to have her blood sugars monitored by staff at SNF and bring a log with her to her PCP for further adjustment of medications as needed. (5) Chronic anemia: Code(s): D64.9 - Anemia, unspecified Status: Chronic Assessment and Plan: Likely anemia of chronic disease. No signs of acute blood loss and vital signs remained stable. H&H remained consistent with baseline upon review of prior labs. (6) COPD (chronic obstructive pulmonary disease): Qualifiers: COPD type: unspecified COPD Qualified Code(s): J44.9 - Chronic obstructive pulmonary disease, unspecified Code(s): J44.9 - Chronic obstructive pulmonary disease, unspecified Status: Chronic Assessment and Plan: Not in acute exacerbation. Continue bronchodilators. (7) Dysphagia: Code(s): R13.10 - Dysphagia, unspecified Status: Acute Assessment and Plan: Patient noted to be coughing after drinking thin liquids. Evaluated by speech therapy recommended mildly thick liquids. this is probably due to her advanced dementia. She can continue speech therapy 3 times per week at [facility] per [employer] recommendations. (8) Hypomagnesemia: Code(s): E83.42 - Hypomagnesemia Status: Acute Assessment and Plan: Soledad
[2020-09-02 17:03] LABS: Glucose Point of Care 132 (65-105)
[2020-09-02 17:03] LABS: Glucose Point of Care 261 (65-105)
== END 2020-09-02 18:15 | DRG 690 ==
LOC: ANHED 20:00 → ANH3MED 22:07
PROVIDERS: Physician Assistant; Admitting Provider Family Medicine; Emergency Provider Emergency Medicine; PCP Family Medicine; Visit Provider Physician Assistant
DX: N39.0 Urinary tract infection, site not specified (principal); F32.1 Major depressive disorder, single episode, moderate; B96.4 Proteus (mirabilis) (morganii) as the cause of diseases classified elsewhere; S01.112A Laceration without foreign body of left eyelid and periocular area, initial encounter; W19.XXXA Unspecified fall, initial encounter; Z20.822 Contact with and (suspected) exposure to COVID-19; R55 Syncope and collapse; F03.90 Unspecified dementia, unspecified severity, without behavioral disturbance, psychotic disturbance, mood disturbance, and anxiety; E83.42 Hypomagnesemia; E11.22 Type 2 diabetes mellitus with diabetic chronic kidney disease; R07.89 Other chest pain; N18.30 Chronic kidney disease, stage 3 unspecified; J44.9 Chronic obstructive pulmonary disease, unspecified; E78.5 Hyperlipidemia, unspecified; G47.33 Obstructive sleep apnea (adult) (pediatric); M48.061 Spinal stenosis, lumbar region without neurogenic claudication; E55.9 Vitamin D deficiency, unspecified; E78.2 Mixed hyperlipidemia; D50.0 Iron deficiency anemia secondary to blood loss (chronic); D63.1 Anemia in chronic kidney disease; F32.9 Major depressive disorder, single episode, unspecified; R13.10 Dysphagia, unspecified
CPT/HCPCS: 12013; 36415; 51701; 70450; 71045; 72125; 73502; 80048; 80053; 81001; 82607; 82728; 82746; 83036; 83540; 83550; 83735; 84484; 85025; 87077; 87086; 87088; 87186; 90471; 90715; 92610; 93005; 96361; 96365; 96367; 97110; 97116; 97162; 97165; 97535; 99285; A9270; C9803; G0378; J0696; J1650; J1815; J1885; J3475; J7030; U0003

== ENCOUNTER 2023-02-12 12:50 | Emergency (ER) | payer MEDICARE, SELFPAY ==
--- NOTE | ~2023-02-12 | CT_ITS ---
EXAMINATION: CT brain wo con DATE: 02/12/2023 13:24 INDICATION: Unwitnessed fall, head trauma TECHNIQUE: Computed tomography (CT) of the head was performed without intravenous contrast. The mA wa s adjusted according to patient size. Iterative reconstruction technique was employed. Exam dose: 60 5.33 mGy-cm total exam DLP. COMPARISON: 08/30/2020 CT brain FINDINGS: Bilateral vertebral artery, basilar artery and bilateral carotid siphon internal carotid ar sepideh calcifications. There is nonspecific diminished attenuation of the cerebral white matter, likely due to chronic small vessel ischemic changes There is central and cortical cerebral and cerebellar atrophy. No intracranial mass lesion or hemorrhage, midline shift or mass effect. No subdural or epidural alejandra erna. Bilateral ocular lens replacements. No orbital mass lesion. The mastoid air cells and paranasal sinuses are normally developed and aerated. No fracture or bone destruction of the cranial vault is detected. IMPRESSION: Cerebral atherosclerosis and chronic small vessel ischemic changes of the cerebral white matter Cerebral and cerebellar atrophy consistent with patient age No acute intracranial finding or skull fracture Reviewed, dictated and finalized at [facility] Reviewed, dictated and finalized at [facility].
--- NOTE | ~2023-02-12 | XR_ITS ---
XR shoulder LT min 2V DATE: 02/12/2023 13:13 INDICATION: Humeral neck fracture TECHNIQUE: Portable supine AP and Neer views COMPARISON: None FINDINGS: There is diffuse osteopenia. Normal alignment at the acromioclavicular and glenohumeral joints. 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 There is a comminuted proximal humeral fracture including a longitudinal fracture through the greater tuberosity and transverse surgical neck fracture, with medial cortical fracture of the proximal beverly ral shaft. Scoliosis and degenerative change of the thoracic spine. IMPRESSION: Comminuted fracture the proximal left humerus including surgical neck, greater tuberosity and proximal medial shaft cortex Osteopenia Reviewed, dictated and finalized at [facility]. IMPRESSION: Comminuted fracture the proximal left humerus including surgical ne ck, greater tuberosity and proximal medial shaft cortex Osteopenia
[2023-02-12 12:56] VITALS: BP 148/51; PULSE 97; RESP 20; TEMP 36.5; O2SAT 97
--- NOTE | 2023-02-12 13:05 | ED.FALL ---
HPI - Fall General Chief Complaint: Fall Stated Complaint: fall/ humeral neck fx Time Seen by Provider: 02/12/23 12:53 History of Present Illness HPI Narrative: 87-year-old female presented the emergency department for evaluation of left shoulder pain. Patient is a resident at a memory care unit and was found on the ground. Patient does not recall having a fall. Patient does complain of left arm pain. Related Data Home Medications Medication Instructions Recorded Confirmed docusate sodium 100 mg tablet 100 mg PO DAILY 07/24/19 12/29/21 (Stool Softener) lifitegrast 5 % eye drops in a 1 drop ophthalmic (eye) BID 07/25/19 12/29/21 dropperette (Xiidra) acetaminophen 325 mg tablet 650 mg PO QAM AND QPM 08/10/19 12/29/21 (Tylenol) furosemide 20 mg tablet 20 mg PO QAM 12/17/19 12/29/21 acetaminophen 325 mg tablet 325 mg PO QNOON 08/31/20 12/29/21 donepezil 10 mg tablet 10 mg PO HS 08/31/20 12/29/21 memantine 10 mg tablet 10 mg PO BID 08/31/20 12/29/21 metformin 500 mg tablet,extended 500 mg PO QPM 12/15/20 12/29/21 release 24 hr buspirone 10 mg tablet 10 mg PO BID 12/29/21 12/29/21 cholecalciferol (vitamin D3) 50 50 mcg PO DAILY 12/29/21 12/29/21 mcg (2,000 unit) capsule divalproex 125 mg tablet,delayed 125 mg PO BID 12/29/21 12/29/21 release (Depakote) furosemide 20 mg tablet (Lasix) 10 mg PO QAM 12/29/21 12/29/21 insulin aspart U-100 100 unit/mL 1 sliding scale dose subcut 12/29/21 12/29/21 (3 mL) subcutaneous pen (Novolog USEASDIRECTD FlexPen U-100 Insulin aspart) meclizine 25 mg tablet 25 mg PO BID 12/29/21 12/29/21 Allergies Allergy/AdvReac Type Severity Reaction Status Date / Time No Known Allergies Allergy Verified 12/29/21 07:56 Review of Systems Review of Systems: All systems reviewed & are unremarkable except as noted in HPI and below PMFSH Past Medical History Medical History BMI 31.0-31.9,adult BMI 32.0-32.9,adult BMI 34.0-34.9,adult BMI greater than 30 CKD (chronic kidney disease) stage 3, GFR 30-59 ml/min COPD (chronic obstructive pulmonary disease) Depression Diabetes type 2, uncontrolled Dyslipidemia Iron deficiency anemia secondary to blood loss (chronic) Loss of balance Mixed hyperlipidemia CLAIR (obstructive sleep apnea) CLAIR (obstructive sleep apnea) Primary insomnia Psychosis Recurrent urinary tract infection Spinal stenosis of lumbar region with neurogenic claudication Type 2 diabetes mellitus without complications Vitamin D deficiency, unspecified Family History Family History Father Family history of coronary artery disease Cerebrovascular accident Family history of congestive heart failure Social History Social History Smoking status: Never smoker Alcohol intake: never Substance use: never Gender identity (if verbalized by the patient): Female Sexual Orientation (if Verbalized by the Patient): Straight or Heterosexual Spiritual care concerns: No Exam Narrative: APPEARANCE: Well appearing, no pain, no distress, well-nourished. HEAD: normocephalic, atraumatic. EYES: PERRLA/EOMI, conjunctivae clear. NOSE: Normal no drainage NECK: Supple. No adenopathy, no masses. RESPIRATORY: Airway patent, respirations nonlabored. Clear to auscultation bilaterally, no rales, rhonchi, wheezing. CARDIOVASCULAR: Regular rate and rhythm without murmurs rubs or gallops. ABDOMINAL: Soft, nontender, nondistended, normal bowel sounds MUSCULOSKELETAL: Pain with range of motion of left shoulder. Neurovascular intact. NEURO: Alert. Cranial nerves II through XII intact. Grossly intact SKIN: Warm, dry. Normal Color Course Course Emergency Course: 87-year-old female presenting to the ED for left shoulder pain. X-ray shows a humeral fracture. Head CT was negative for acute injury. Case was discussed with
[2023-02-12] MEDS: HYDROcodone/acetaminophen (*CRX) 5-325 MG TABLET 1 TAB PO (13:42)
== END 2023-02-12 16:00 ==
PROVIDERS: Emergency Provider Emergency Medicine; PCP Family Medicine
DX: S42.212A Unspecified displaced fracture of surgical neck of left humerus, initial encounter for closed fracture (principal); S42.252A Displaced fracture of greater tuberosity of left humerus, initial encounter for closed fracture; S42.392A Other fracture of shaft of left humerus, initial encounter for closed fracture; E11.22 Type 2 diabetes mellitus with diabetic chronic kidney disease; N18.30 Chronic kidney disease, stage 3 unspecified; J44.9 Chronic obstructive pulmonary disease, unspecified; E78.5 Hyperlipidemia, unspecified; E78.2 Mixed hyperlipidemia; G47.33 Obstructive sleep apnea (adult) (pediatric); D50.0 Iron deficiency anemia secondary to blood loss (chronic); E55.9 Vitamin D deficiency, unspecified; Z87.440 Personal history of urinary (tract) infections; Z79.84 Long term (current) use of oral hypoglycemic drugs; Z79.4 Long term (current) use of insulin; I67.2 Cerebral atherosclerosis; M85.812 Other specified disorders of bone density and structure, left shoulder; W19.XXXA Unspecified fall, initial encounter
CPT/HCPCS: 70450; 73030; 99284; A4565; A9270